=== PATIENT | female | born 1965 | race Caucasian/White ===

== ENCOUNTER 2024-02-13 09:33 | Emergency (ER) | payer OTHER ==
[2024-02-13] VITALS (11 sets, daily range): BP systolic 92–136; BP diastolic 66–91
[~2024-02-13] VITALS: Ht 154.9 cm; Wt 63.0 kg
[~2024-02-13 09:33] MED LIST: ALENDRONATE70 MG PO; ALPRAZOLAM0.5 M1 PO; AMOXICILLIN/CL875 MG OR; AUGMENTIN875TAB PO; BACTRIM DS1 TAB PO; BENZONATATE200 MG PO; CIPRODEX1 ML AU; CIPROFLOXACN500 MG PO; COLACE100 MG PO; CYANOCOBALAM1000 MC1 IJ; CYANOCOBALAM1000 MCG IJ; CYANOCOBALAM1000 MCG IM; DIFLUCAN150 MG OR; DIFLUCAN150 MG PO; DOXYCYCL HYC100 MG PO; FERROUS SULF325 M1 PO; IRON325 MG OR; KEFLEX500 MG PO; LEVOTHROID25 MC1 PO; LEVOTHYROXIN50 MC1 PO; LORTAB 10-325 M1 TAB PO; MUCINEX600 MG PO; NASONEX50 MCG/AC; OMNICEF300 MG OR; PERCOCET 5/325M1 TAB PO; PHENERGAN12.5 MG/TA PO; PHENTERMINE15 MG PO; RETIN-A0.05 % EX; ROCEPHIN 1 GM1 GM IM; SOLU-MEDROL125 MG IM; TIZANIDINE4 MG PO; ULTRAM50 MG OR; ULTRAM50 MG PO; ZOFRAN ODT4 MG PO; ZOFRAN ODT8 MG SL; [UNRECOGNIZED DRUG - SUPPLY] EX
[2024-02-13] MEDS ORDERED: ACETAMINOPHEN PO ONE (12:35)
[2024-02-13] MEDS ORDERED: CODEINE PO ONE (12:35)
[2024-02-13] MEDS ORDERED: TYLENOL # 31 TA1 PO (12:39)
[2024-02-13] MEDS ORDERED: guaiFENesin-CODEINE 200-20 MG/10 ML UDC PO ONE (12:50)
== END 2024-02-13 13:02 | disposition home or self-care (01) | DRG 203 ==
LOC: ED 09:33
DX: J20.9 Acute bronchitis, unspecified (principal); Z20.822 Contact with and (suspected) exposure to COVID-19